=== PATIENT | male | born 1975 | race Caucasian/White ===

== ENCOUNTER 2018-12-20 15:54 | Inpatient (IN) | payer OTHER, MEDICAID ==
[2018-12-21 01:04] LABS: ADD MAN DIFF? NO
[2018-12-21 01:06] LABS: BASOPHIL # 0.1 10^3/ul (0.0-0.1); BASOPHILS % 0.4 % (0.0-2.0); EOSINOPHILS # 0.1 10^3/ul (0.0-0.5); EOSINOPHILS % 0.9 % (0.0-7.0); HEMATOCRIT 36.7 % (42.0-52.0); HEMOGLOBIN 12.5 g/dl (14.0-18.0); LYMPHOCYTES # 1.8 10^3/ul (0.8-2.9); LYMPHOCYTES % 12.6 % (15.0-51.0); MEAN CORPUSCULAR HGB CONC 34.1 g/dl (32.0-37.0); MEAN CORPUSCULAR VOLUME 79.3 fl (82.0-101.0); NEUTROPHIL # 10.9 10^3/ul (1.6-7.5); NEUTROPHILS % 78.5 % (39.0-77.0); PLATELET COUNT 520 10^3/UL (140-415); RED BLOOD COUNT 4.63 10^6/ul (4.70-6.10); RED CELL DISTRIBUTION WIDTH 12.9 % (11.5-14.5)
[2018-12-21 01:06] LABS: WHITE BLOOD COUNT 13.9 10^3/ul (4.8-10.8)
[2018-12-21] MEDS: PIPER-TAZO 3.375 GM IV (PMX) 100 ML IVPB ×3 (01:18→17:08)
[2018-12-21] MEDS: SODIUM CHLORIDE 0.9% 1L BAG IV* (01:18)
[2018-12-21 01:21] LABS: LACTIC ACID 1.3 mmol/L (0.5-2.0)
[2018-12-21 01:23] LABS: ALANINE AMINOTRANSFERASE 40 IU/L (13-69); ALBUMIN 3.6 g/dl (3.3-4.9); ALKALINE PHOSPHATASE 152 IU/L (42-121); ANION GAP 12 (5-13); ASPARTATE AMINO TRANSFERASE 40 IU/L (15-46); BILIRUBIN,INDIRECT 0.5 mg/dl (0-1.1); BILIRUBIN,TOTAL 0.5 mg/dl (0.2-1.3); BLOOD UREA NITROGEN 13 mg/dl (7-20); CALCIUM 8.6 mg/dl (8.4-10.2); CARBON DIOXIDE 26 mmol/L (21-31); CHLORIDE 95 mmol/L (97-110); CREATININE 0.76 mg/dl (0.61-1.24); Estimated GFR > 60 mL/min (>60); GLUCOSE 142 mg/dl (70-220); POTASSIUM 4.3 mmol/L (3.5-5.1); SODIUM 133 mmol/L (135-144); TOTAL PROTEIN 8.1 g/dl (6.1-8.1)
[2018-12-21 01:25] LABS: PROTIME 14.3 Sec (11.9-14.9); PT RATIO 1.1
[2018-12-21 01:26] LABS: PARTIAL THROMBOPLASTIN TIME 34.8 Sec (23.0-35.0)
[2018-12-21 01:34] LABS: TROPONIN-I < 0.012 ng/ml (0.000-0.120)
[2018-12-21] MEDS: VANCOMYCIN 1 GM (PMX) 250 ML IVPB (02:06)
[2018-12-21] MEDS ORDERED: VANCOMYCIN IV PER PHARMACY XX (02:30)
[2018-12-21] MEDS ORDERED: ACETAMINOPHEN 325 MG TAB PO (02:30)
[2018-12-21] MEDS ORDERED: DOCUSATE SODIUM 100 MG CAP PO (02:30)
[2018-12-21] MEDS ORDERED: NACL 0.9% 3 ML SYG IV (02:30)
[2018-12-21] MEDS ORDERED: BISACODYL (EC) 5 MG TAB PO (02:30)
[2018-12-21] MEDS ORDERED: ONDANSETRON 4 MG INJ IV (02:30)
[2018-12-21] MEDS: HYDROCODONE/APAP (5/325) TAB PO (03:22)
[2018-12-21 06:20] LABS: ADD UMIC NO; UR ASCORBIC ACID NEGATIVE (NEGATIVE); UR BILIRUBIN (Dip) NEGATIVE (NEGATIVE); UR BLOOD (Dip) NEGATIVE (NEGATIVE); UR CLARITY CLEAR (CLEAR); UR COLOR YELLOW (YELLOW); UR GLUCOSE (Dip) NEGATIVE (NEGATIVE); UR KETONES (Dip) NEGATIVE (NEGATIVE); UR LEUKOCYTE ESTERASE (Dip) NEGATIVE Leu/ul (NEGATIVE); UR NITRITE (Dip) NEGATIVE (NEGATIVE); UR SPECIFIC GRAVITY (Dip) 1.019 (1.003-1.030); UR TOTAL PROTEIN (Dip) NEGATIVE (NEGATIVE); UR UROBILINOGEN (Dip) 2+ mg/dL (NEGATIVE)
[2018-12-21] MEDS: VANCOMYCIN 1 GM 250 ML IVPB ×2 (09:06→17:53)
[2018-12-21] MEDS: METHADONE 5 MG TAB PO ×2 (11:48→17:08)
[2018-12-22] MEDS: PIPER-TAZO 3.375 GM IV (PMX) 100 ML IVPB ×4 (00:21→18:00)
[2018-12-22] MEDS: METHADONE 5 MG TAB PO ×4 (00:21→22:57)
[2018-12-22] MEDS: VANCOMYCIN 1 GM 250 ML IVPB (01:57)
[2018-12-22] MEDS ORDERED: SUCCINYLCHOLINE CHLORIDE 100 MG/5 ML SYG IV (07:00)
[2018-12-22] MEDS ORDERED: PROPOFOL 200 MG INJ (07:00)
[2018-12-22 11:33] LABS: ADD MAN DIFF? NO
[2018-12-22 11:39] LABS: BASOPHIL # 0.1 10^3/ul (0.0-0.1); BASOPHILS % 0.5 % (0.0-2.0); EOSINOPHILS # 0.2 10^3/ul (0.0-0.5); EOSINOPHILS % 1.5 % (0.0-7.0); HEMATOCRIT 36.3 % (42.0-52.0); HEMOGLOBIN 12.2 g/dl (14.0-18.0); LYMPHOCYTES # 1.7 10^3/ul (0.8-2.9); LYMPHOCYTES % 12.7 % (15.0-51.0); MEAN CORPUSCULAR HEMOGLOBIN 27.2 pg (29.0-33.0); MEAN CORPUSCULAR HGB CONC 33.6 g/dl (32.0-37.0); MONOCYTES % 7.7 % (0.0-11.0); NEUTROPHIL # 10.1 10^3/ul (1.6-7.5); NEUTROPHILS % 76.9 % (39.0-77.0); PLATELET COUNT 452 10^3/UL (140-415); RED BLOOD COUNT 4.48 10^6/ul (4.70-6.10); RED CELL DISTRIBUTION WIDTH 12.6 % (11.5-14.5)
[2018-12-22 11:39] LABS: WHITE BLOOD COUNT 13.1 10^3/ul (4.8-10.8)
[2018-12-22 12:01] LABS: CREATINE KINASE 49 IU/L (23-200); IRON 20 ug/dl (35-150)
[2018-12-22 12:04] LABS: ALANINE AMINOTRANSFERASE 31 IU/L (13-69); ALBUMIN 3.4 g/dl (3.3-4.9); ALKALINE PHOSPHATASE 132 IU/L (42-121); ANION GAP 10 (5-13); ASPARTATE AMINO TRANSFERASE 35 IU/L (15-46); BILIRUBIN,INDIRECT 0.5 mg/dl (0-1.1); BILIRUBIN,TOTAL 0.5 mg/dl (0.2-1.3); BLOOD UREA NITROGEN 11 mg/dl (7-20); CALCIUM 8.9 mg/dl (8.4-10.2); CARBON DIOXIDE 27 mmol/L (21-31); CHLORIDE 98 mmol/L (97-110); CHOL/HDL RATIO 3.1 RATIO; CHOLESTEROL 57 mg/dl (100-200); CREATININE 0.68 mg/dl (0.61-1.24); Estimated GFR > 60 mL/min (>60); GLUCOSE 91 mg/dl (70-220); HDL CHOLESTEROL 18 mg/dl (27-67); LDL CHOLESTEROL,CALCULATED 32 mg/dl; MAGNESIUM 1.9 mg/dl (1.7-2.5); POTASSIUM 4.6 mmol/L (3.5-5.1); SODIUM 135 mmol/L (135-144); TOTAL PROTEIN 7.6 g/dl (6.1-8.1); TRIGLYCERIDES 33 mg/dl (0-149)
[2018-12-22 12:11] LABS: % IRON SATURATION 8 % SAT (22-52); TOTAL IRON BINDING CAPACITY 251 ug/dl (241-421)
[2018-12-22 12:13] LABS: VANCOMYCIN,TROUGH 6.8 ug/ml (10.0-20.0)
[2018-12-22 12:14] LABS: CK INDEX 0.4; CK-MB < 0.22 ng/ml (0.0-2.4); TROPONIN-I < 0.012 ng/ml (0.000-0.120)
[2018-12-22 12:19] LABS: C-REACTIVE PROTEIN 16.2 mg/dl (0.0-0.9)
[2018-12-22 12:42] LABS: HIV 1&2 ANTIBODY NEGATIVE (NEGATIVE)
[2018-12-22 12:58] LABS: ERYTHROCYTE SEDIMENTATION RATE 95 mm/Hr (0-15)
[2018-12-22] MEDS ORDERED: HYDROmorphONE 1 MG/5 ML IV SYRINGE IV ×3 (13:00)
[2018-12-22] MEDS ORDERED: LORAZEPAM 2 MG INJ IV (13:00)
[2018-12-22] MEDS ORDERED: MEPERIDINE 25 MG INJ IV (13:00)
[2018-12-22] MEDS ORDERED: MIDAZOLAM 1 MG/ML 2 ML INJ (13:00)
[2018-12-22] MEDS ORDERED: ONDANSETRON 4 MG INJ IV (13:00)
[2018-12-22] MEDS ORDERED: ROCURONIUM 50 MG INJ (13:00)
[2018-12-22] MEDS ORDERED: LIDOCAINE 1% (MDV) 20 ML INJ (13:01)
[2018-12-22] MEDS ORDERED: ROPIVACAINE 0.5 % 30 ML VIAL (13:01)
[2018-12-22] MEDS ORDERED: ONDANSETRON 4 MG INJ (13:33)
[2018-12-22] MEDS ORDERED: VANCOMYCIN 1 GM (PMX) 250 ML (13:37)
[2018-12-22] MEDS: VANCOMYCIN 1 GM INJ (14:13)
[2018-12-22] MEDS: TOBRAMYCIN 1.2 GM POWDER (14:13)
[2018-12-22] MEDS ORDERED: VANCOMYCIN HCL 1.25 GM in SOD CHLORIDE 0.9% 250 ML IVPB (14:30)
[2018-12-22] MEDS: HYDROCODONE/APAP (5/325) TAB PO (21:05)
[2018-12-22] MEDS: morphine 2 MG INJ IV (21:57)
[2018-12-22] MEDS: VANCOMYCIN HCL 1.25 GM in SOD CHLORIDE 0.9% 250 ML IVPB (22:16)
[2018-12-23] MEDS: PIPER-TAZO 3.375 GM IV (PMX) 100 ML IVPB ×4 (03:13→17:58)
[2018-12-23] MEDS: METHADONE 5 MG TAB PO ×3 (06:07→22:11)
[2018-12-23] MEDS: VANCOMYCIN HCL 1.25 GM in SOD CHLORIDE 0.9% 250 ML IVPB ×3 (06:12→20:38)
[2018-12-23] MEDS: morphine 2 MG INJ IV ×4 (08:00→20:38)
[2018-12-24] MEDS: PIPER-TAZO 3.375 GM IV (PMX) 100 ML IVPB ×2 (00:13→05:16)
[2018-12-24] MEDS: METHADONE 5 MG TAB PO ×3 (05:16→22:15)
[2018-12-24] MEDS: VANCOMYCIN HCL 1.25 GM in SOD CHLORIDE 0.9% 250 ML IVPB ×3 (05:55→20:49)
[2018-12-24] MEDS: morphine 2 MG INJ IV (18:52)
[2018-12-25] MEDS: METHADONE 5 MG TAB PO ×3 (05:27→22:06)
[2018-12-25] MEDS: VANCOMYCIN HCL 1.25 GM in SOD CHLORIDE 0.9% 250 ML IVPB (05:31)
[2018-12-25 06:20] LABS: VANCOMYCIN,TROUGH 10.1 ug/ml (10.0-20.0)
[2018-12-25 06:24] LABS: BLOOD UREA NITROGEN 12 mg/dl (7-20)
[2018-12-25] MEDS: HYDROCODONE/APAP (5/325) TAB PO ×2 (11:10→20:46)
[2018-12-25] MEDS: VANCOMYCIN HCL 1.5 GM in SOD CHLORIDE 0.9% 250 ML IVPB ×2 (13:42→21:00)
[2018-12-25] MEDS ORDERED: CLINDAMYCIN 150 MG CAP PO (23:00)
[2018-12-26] MEDS: CLINDAMYCIN 300 MG CAP PO ×3 (00:38→13:52)
[2018-12-26] MEDS: VANCOMYCIN HCL 1.5 GM in SOD CHLORIDE 0.9% 250 ML IVPB ×2 (05:00→11:05)
[2018-12-26] MEDS: METHADONE 5 MG TAB PO ×2 (06:20→13:52)
[2018-12-26] MEDS: HYDROCODONE/APAP (5/325) TAB PO (11:09)
== END 2018-12-26 19:00 | disposition home health service (06) | DRG 580 ==
LOC: FTE 15:54 → PP2 12-21 01:56
PROC: 0KB80ZZ Excision of Left Upper Arm Muscle, Open Approach (ICD-10-PCS; principal; 2018-12-22 11:30)
PROC: 0K980ZZ Drainage of Left Upper Arm Muscle, Open Approach (ICD-10-PCS; 2018-12-22 11:30)
DX: L02.414 Cutaneous abscess of left upper limb (principal); L03.115 Cellulitis of right lower limb; I82.622 Acute embolism and thrombosis of deep veins of left upper extremity; L02.416 Cutaneous abscess of left lower limb; L02.415 Cutaneous abscess of right lower limb; L03.114 Cellulitis of left upper limb; F11.90 Opioid use, unspecified, uncomplicated; B95.62 Methicillin resistant Staphylococcus aureus infection as the cause of diseases classified elsewhere; F17.200 Nicotine dependence, unspecified, uncomplicated; F15.90 Other stimulant use, unspecified, uncomplicated
CPT/HCPCS: 36415; 71045; 73220; 73700; 80053; 80061; 80202; 81003; 82550; 82553; 82565; 82728; 83540; 83605; 83735; 84443; 84484; 84520; 85025; 85610; 85651; 85730; 86140; 86703; 86803; 87040; 87070; 87075; 87086; 87102; 87116; 93005; 93306; 93971; 96374; 99285-25

== ENCOUNTER 2019-05-04 23:38 | Inpatient (IN) | payer OTHER ==
[2019-05-05] MEDS: SOD CHLORIDE 0.9% 1,000 ML IV (02:09)
[2019-05-05 02:44] LABS: ADD MAN DIFF? NO
[2019-05-05] MEDS: CEFEPIME 1GM/50 ML (PMX) 50 ML IVPB (02:45)
[2019-05-05 02:46] LABS: BASOPHIL # 0.1 10^3/ul (0.0-0.1); BASOPHILS % 0.9 % (0.0-2.0); EOSINOPHILS # 0.2 10^3/ul (0.0-0.5); EOSINOPHILS % 2.9 % (0.0-7.0); HEMATOCRIT 41.7 % (42.0-52.0); LYMPHOCYTES # 1.4 10^3/ul (0.8-2.9); MEAN CORPUSCULAR HEMOGLOBIN 26.3 pg (29.0-33.0); MEAN CORPUSCULAR HGB CONC 33.6 g/dl (32.0-37.0); MEAN CORPUSCULAR VOLUME 78.4 fl (82.0-101.0); MEAN PLATELET VOLUME 8.5 fl (7.4-10.4); MONOCYTE # 0.8 10^3/ul (0.3-0.9); MONOCYTES % 10.1 % (0.0-11.0); NEUTROPHIL # 5.4 10^3/ul (1.6-7.5); NEUTROPHILS % 67.5 % (39.0-77.0); PLATELET COUNT 584 10^3/UL (140-415); RED BLOOD COUNT 5.32 10^6/ul (4.70-6.10); RED CELL DISTRIBUTION WIDTH 12.6 % (11.5-14.5)
[2019-05-05 03:06] LABS: ALANINE AMINOTRANSFERASE 92 IU/L (13-69); ALBUMIN 4.4 g/dl (3.3-4.9); ALBUMIN/GLOBULIN RATIO 0.88; ALKALINE PHOSPHATASE 229 IU/L (42-121); ANION GAP 11 (5-13); ASPARTATE AMINO TRANSFERASE 102 IU/L (15-46); BILIRUBIN,INDIRECT 0.5 mg/dl (0-1.1); BILIRUBIN,TOTAL 0.5 mg/dl (0.2-1.3); BLOOD UREA NITROGEN 18 mg/dl (7-20); C-REACTIVE PROTEIN 3.7 mg/dl (0.0-0.9); CALCIUM 9.8 mg/dl (8.4-10.2); CARBON DIOXIDE 30 mmol/L (21-31); CHLORIDE 99 mmol/L (97-110); CREATININE 0.81 mg/dl (0.61-1.24); Estimated GFR > 60 mL/min (>60); GLUCOSE 89 mg/dl (70-220); LIPASE 41 U/L (23-300); POTASSIUM 4.2 mmol/L (3.5-5.1); SODIUM 140 mmol/L (135-144); TOTAL PROTEIN 9.4 g/dl (6.1-8.1)
[2019-05-05 03:07] LABS: INR 1.01; PROTIME 13.4 Sec (11.9-14.9)
[2019-05-05] MEDS: VANCOMYCIN 1 GM (PMX) 250 ML IVPB (03:07)
[2019-05-05 03:08] LABS: PARTIAL THROMBOPLASTIN TIME 29.4 Sec (23.0-35.0)
[2019-05-05] MEDS ORDERED: ALBUTEROL/IPRATROPIUM (NEB) 3 ML AMP HHN (05:00)
[2019-05-05] MEDS ORDERED: KETOROLAC 30 MG INJ IV ×2 (05:00→17:00)
[2019-05-05] MEDS ORDERED: NACL 0.9% 3 ML SYG IV (05:00)
[2019-05-05] MEDS ORDERED: ACETAMINOPHEN 325 MG TAB PO (05:00)
[2019-05-05] MEDS ORDERED: ONDANSETRON 4 MG INJ IV (05:00)
[2019-05-05 05:25] LABS: ERYTHROCYTE SEDIMENTATION RATE 87 mm/Hr (0-15)
[2019-05-05] MEDS: DEXTROSE 5%-0.45% NACL 1,000 ML IV ×2 (05:55→15:14)
[2019-05-05] MEDS: morphine 2 MG INJ IV ×2 (05:55→21:36)
[2019-05-05] MEDS: LIDOCAINE 1% (MDV) 20 ML INJ INJ (11:23)
[2019-05-05] MEDS ORDERED: LORAZEPAM 2 MG INJ IV (12:30)
[2019-05-05] MEDS ORDERED: VANCOMYCIN IV PER PHARMACY XX (12:30)
[2019-05-05] MEDS: DAKINS 0.0125%(1/40) 473 ML SOLUTION TP (12:30)
[2019-05-05 13:14] LABS: HEMOGLOBIN A1C 5.2 % (0-5.9)
[2019-05-05] MEDS ORDERED: HYDROCODONE/APAP (7.5/325) TAB PO (13:30)
[2019-05-05] MEDS: CEFEPIME 2GM/50 ML (PMX) 50 ML IVPB (14:38)
[2019-05-05] MEDS: VANCOMYCIN 1.25 GM/NS 250 ML 250 ML IVPB ×2 (15:46→22:24)
[2019-05-05] MEDS ORDERED: POVIDONE IODINE 10% 28.4 GM OINT TOP ×2 (21:00)
[2019-05-06] MEDS: CEFEPIME 2GM/50 ML (PMX) 50 ML IVPB ×3 (02:03→20:12)
[2019-05-06] MEDS: morphine 2 MG INJ IV ×2 (02:04→08:10)
[2019-05-06] MEDS: DEXTROSE 5%-0.45% NACL 1,000 ML IV ×2 (04:34→16:50)
[2019-05-06 05:44] LABS: ADD MAN DIFF? NO
[2019-05-06 05:54] LABS: BASOPHIL # 0.1 10^3/ul (0.0-0.1); BASOPHILS % 0.7 % (0.0-2.0); EOSINOPHILS # 0.2 10^3/ul (0.0-0.5); EOSINOPHILS % 2.8 % (0.0-7.0); HEMATOCRIT 36.6 % (42.0-52.0); HEMOGLOBIN 12.4 g/dl (14.0-18.0); LYMPHOCYTES # 1.4 10^3/ul (0.8-2.9); LYMPHOCYTES % 19.8 % (15.0-51.0); MEAN CORPUSCULAR HEMOGLOBIN 26.4 pg (29.0-33.0); MEAN CORPUSCULAR HGB CONC 33.9 g/dl (32.0-37.0); MEAN CORPUSCULAR VOLUME 77.9 fl (82.0-101.0); MEAN PLATELET VOLUME 8.8 fl (7.4-10.4); MONOCYTE # 0.7 10^3/ul (0.3-0.9); MONOCYTES % 9.1 % (0.0-11.0); NEUTROPHIL # 4.9 10^3/ul (1.6-7.5); NEUTROPHILS % 67.3 % (39.0-77.0); PLATELET COUNT 490 10^3/UL (140-415); RED CELL DISTRIBUTION WIDTH 12.4 % (11.5-14.5)
[2019-05-06 05:54] LABS: WHITE BLOOD COUNT 7.2 10^3/ul (4.8-10.8)
[2019-05-06] MEDS: VANCOMYCIN 1.25 GM/NS 250 ML 250 ML IVPB ×3 (06:09→21:58)
[2019-05-06 06:27] LABS: ALANINE AMINOTRANSFERASE 77 IU/L (13-69); ALBUMIN 3.3 g/dl (3.3-4.9); ALBUMIN/GLOBULIN RATIO 0.89; ALKALINE PHOSPHATASE 148 IU/L (42-121); ANION GAP 6 (5-13); ASPARTATE AMINO TRANSFERASE 69 IU/L (15-46); BILIRUBIN,INDIRECT 0.3 mg/dl (0-1.1); BILIRUBIN,TOTAL 0.3 mg/dl (0.2-1.3); BLOOD UREA NITROGEN 15 mg/dl (7-20); CALCIUM 8.7 mg/dl (8.4-10.2); CARBON DIOXIDE 28 mmol/L (21-31); CHLORIDE 105 mmol/L (97-110); CREATININE 0.65 mg/dl (0.61-1.24); Estimated GFR > 60 mL/min (>60); GLUCOSE 113 mg/dl (70-220); PHOSPHORUS 4.7 mg/dl (2.5-4.9); POTASSIUM 4.5 mmol/L (3.5-5.1); SODIUM 139 mmol/L (135-144)
[2019-05-06 06:29] LABS: CHOLESTEROL 84 mg/dl (100-200)
[2019-05-06 06:29] LABS: CHOL/HDL RATIO 3.6 RATIO; HDL CHOLESTEROL 23 mg/dl (27-67); LDL CHOLESTEROL,CALCULATED 54 mg/dl; TRIGLYCERIDES 37 mg/dl (0-149)
[2019-05-06 06:54] LABS: HEPATITIS B SURFACE ANTIGEN NEGATIVE (NEGATIVE)
[2019-05-06 07:18] LABS: HEPATITIS C VIRAL ANTIBODY REACTIVE (NEGATIVE)
[2019-05-06 07:26] LABS: HEPATITIS B SURFACE ANTIBODY POSITIVE (NEGATIVE)
[2019-05-06] MEDS: DAKINS 0.0125%(1/40) 473 ML SOLUTION TP (08:13)
[2019-05-06 15:35] LABS: VANCOMYCIN,TROUGH 10.3 ug/ml (10.0-20.0)
[2019-05-06 22:19] LABS: BARBITURATES Negative (NEGATIVE); BENZODIAZEPINES Negative (NEGATIVE); CANNABINOIDS Positive (NEGATIVE); COCAINE Negative (NEGATIVE)
[2019-05-06 22:33] LABS: AMPHETAMINE/METHAMPHETAMINE POSITIVE (NEGATIVE); OPIATES Positive (NEGATIVE)
[2019-05-07] MEDS: morphine 2 MG INJ IV (00:08)
[2019-05-07] MEDS ORDERED: LIDOCAINE 1% (MPF) 5 ML VIAL SC (05:30)
[2019-05-07] MEDS: DEXTROSE 5%-0.45% NACL 1,000 ML IV (07:14)
[2019-05-07] MEDS: CEFEPIME 2GM/50 ML (PMX) 50 ML IVPB (09:00)
== END 2019-05-07 09:30 | disposition left against medical advice (07) | DRG 603 ==
LOC: 5EC 05-05 04:57 → E/R 23:38 → 5EC 05-05 02:45
DX: L02.415 Cutaneous abscess of right lower limb (principal); F33.9 Major depressive disorder, recurrent, unspecified; L03.115 Cellulitis of right lower limb; F19.10 Other psychoactive substance abuse, uncomplicated; F17.200 Nicotine dependence, unspecified, uncomplicated; B95.0 Streptococcus, group A, as the cause of diseases classified elsewhere; B95.62 Methicillin resistant Staphylococcus aureus infection as the cause of diseases classified elsewhere; Z53.21 Procedure and treatment not carried out due to patient leaving prior to being seen by health care provider
CPT/HCPCS: 36415; 71045; 73610-RT; 80053; 80061; 80202; 80307; 83036; 83690; 83735; 84100; 84443; 85025; 85610; 85651; 85730; 86140; 86706; 86803; 87040-91; 87070; 87081; 87340; 93971; 96374; 99285-25

== ENCOUNTER 2019-06-05 00:10 | Emergency (ER) | payer OTHER ==
[2019-06-05] MEDS: TRIMETHOPRIM/SULFAMETHOX (DS) TAB PO (02:24)
[2019-06-05] MEDS: CEPHALEXIN 500 MG CAP PO (02:24)
== END 2019-06-05 02:49 | disposition home or self-care (01) ==
LOC: FTE 00:10
DX: L02.11 Cutaneous abscess of neck (principal); F17.210 Nicotine dependence, cigarettes, uncomplicated; L02.31 Cutaneous abscess of buttock
CPT/HCPCS: 99283; Z7502